=== PATIENT | female | born 1975 | race Two or more races ===

== ENCOUNTER → 2017-10-07 | Emergency (ER) | payer OTHER ==
[~2017-10-07] VITALS: Ht 172.7 cm; Wt 113.4 kg
[~2017-10-07] MED LIST: ACCUNEB0.63 MG/3 IH; CEFADROXIL500 MG PO; DOXYCYCLINE MO100 MG PO; GILTUSS LIQUID237 M1 PO; PRENATAL; PROVENTIL3 ML/2.5 M IH; PULMICORT1 MG/2 ML IH; SINGULAIR10 MG; ULTRAM50 MG PO
== END | disposition home or self-care (01) ==
LOC: ER 21:45
DX: S90.01XA Contusion of right ankle, initial encounter (principal); S30.0XXA Contusion of lower back and pelvis, initial encounter; W18.39XA Other fall on same level, initial encounter; Y93.89 Activity, other specified; Y92.091 Bathroom in other non-institutional residence as the place of occurrence of the external cause; Y99.8 Other external cause status

== ENCOUNTER 2018-01-05 16:37 | Emergency (ER) | payer OTHER ==
[~2018-01-05] VITALS: Ht 172.7 cm; Wt 108.0 kg
[2018-01-05] MEDS ORDERED: AMOX1TAB5 PO (16:50)
[2018-01-05] MEDS ORDERED: PROVENTIL HFA6.7 GM IH (16:50)
== END 2018-01-05 22:46 | disposition home or self-care (01) ==
LOC: ER 16:37
DX: J45.901 Unspecified asthma with (acute) exacerbation (principal)

== ENCOUNTER 2020-08-25 17:26 | Emergency (ER) | payer OTHER ==
[~2020-08-25] VITALS: Ht 172.7 cm; Wt 115.7 kg
[~2020-08-25 17:26] MED LIST changes: +AMOX1TAB5 PO; +PROVENTIL HFA6.7 GM IH
[2020-08-25] MEDS ORDERED: FORTAMET500 MG (17:44)
[2020-08-25] MEDS ORDERED: LEVOTHYROXINE25 MCG (17:45)
== END 2020-08-25 20:41 | disposition home or self-care (01) ==
LOC: ER 17:26
DX: J45.909 Unspecified asthma, uncomplicated (principal)

== ENCOUNTER 2022-02-01 22:53 | Emergency (ER) | payer OTHER ==
[~2022-02-01] VITALS: Ht 172.7 cm; Wt 115.2 kg
[~2022-02-01 22:53] MED LIST changes: +FORTAMET500 MG; +LEVOTHYROXINE25 MCG
[2022-02-01] MEDS ORDERED: UCERIS9 MG (23:22)
[2022-02-02] MEDS ORDERED: PAXLOVID 300-11 EACH PO (04:19)
[2022-02-02] MEDS ORDERED: ZYNCOF 20-400120 ML PO (04:21)
[2022-02-02] MEDS ORDERED: BUDESONIDE0.5 MG/2 M IH (04:21)
[2022-02-02] MEDS ORDERED: ALBUTEROL2.5 MG/3 M IH (04:21)
[2022-02-02] MEDS ORDERED: SINGULAIR10 MG PO (04:23)
== END 2022-02-02 04:46 ==
LOC: ER 22:53
DX: J45.909 Unspecified asthma, uncomplicated (principal); R06.02 Shortness of breath; Z91.040 Latex allergy status; Z88.6 Allergy status to analgesic agent; Z91.018 Allergy to other foods; Z20.822 Contact with and (suspected) exposure to COVID-19; E11.9 Type 2 diabetes mellitus without complications

== ENCOUNTER 2022-03-09 13:39 | Emergency (ER) | payer OTHER ==
[~2022-03-09] VITALS: Ht 172.7 cm; Wt 115.2 kg
[~2022-03-09 13:39] MED LIST changes: +ALBUTEROL2.5 MG/3 M IH; +BUDESONIDE0.5 MG/2 M IH; +PAXLOVID 300-11 EACH PO; +SINGULAIR10 MG PO; +UCERIS9 MG; +ZYNCOF 20-400120 ML PO
== END 2022-03-09 19:38 | disposition home or self-care (01) ==
LOC: ER 13:39
DX: R05.9 Cough, unspecified (principal); Z88.6 Allergy status to analgesic agent; Z91.040 Latex allergy status; Z91.018 Allergy to other foods; Z20.822 Contact with and (suspected) exposure to COVID-19

== ENCOUNTER 2022-10-17 17:20 | Emergency (ER) | payer OTHER ==
[~2022-10-17] VITALS: Ht 175.3 cm; Wt 115.2 kg
== END 2022-10-17 19:25 | disposition home or self-care (01) ==
LOC: ER 17:20
DX: G56.01 Carpal tunnel syndrome, right upper limb (principal); Z88.6 Allergy status to analgesic agent; Z91.040 Latex allergy status; Z91.018 Allergy to other foods; E11.9 Type 2 diabetes mellitus without complications; Z79.84 Long term (current) use of oral hypoglycemic drugs

== ENCOUNTER 2022-12-11 17:10 | Emergency (ER) | payer OTHER ==
[~2022-12-11] VITALS: Ht 172.7 cm; Wt 95.3 kg
[2022-12-11] MEDS ORDERED: METFORMIN HCL500 M3 (17:20)
[2022-12-11 18:58] LABS: HEMATOCRIT 38.1 % (36.0-45.00); HEMOGLOBIN 12.3 g/dL (12.0-15.00); MEAN CELL VOLUME 76.6 fL (80.00-100.00); MEAN CORPUSCULAR HEMOGLOBIN 24.8 pg (27.00-32.0); MEAN CORPUSCULAR HGB CONC 32.3 g/dl (32.0-36.0); PLATELET COUNT 392 K/uL (150-450); RED BLOOD COUNT 4.97 M/uL (4.00-6.00); RED CELL DISTRIBUTION WIDTH 16.5 % (11.5-14.5)
[2022-12-11 19:15] LABS: PH,URINE 7.5 (5.0-8.0); URINE APPEARANCE Clear; URINE BILIRRUBIN Negative (NEGATIVE); URINE BLOOD Negative; URINE COLOR Yellow; URINE GLUCOSE Negative (NEGATIVE); URINE LEUKOCYTE Negative; URINE NITRATE Negative; URINE PROTEIN Negative (NEGATIVE); URINE UROBILINOGEN 0.2 E.U./dl
[2022-12-11 19:16] LABS: URINE BACTERIA 564.1 uL (0.0-1933); URINE EPITHELIAL CELLS 17.6 uL (0.0-38.8); URINE RBC 2.8 uL (0.0-20.8); URINE WBC 7.1 uL (0.0-23.2)
[2022-12-11] MEDS ORDERED: DIABETIC TUSSI118 M3 PO (20:24)
[2022-12-11] MEDS ORDERED: XOPENEX CO1.25 MG/0. IH (20:24)
[2022-12-11] MEDS ORDERED: ZITHROMAX500 MG PO (20:24)
[2022-12-11] MEDS ORDERED: PAXLOVID 300-11 EACH PO (20:24)
== END 2022-12-11 20:53 | disposition home or self-care (01) ==
LOC: ER 17:10
PROVIDERS: Nurse Practitioner Family
DX: U07.1 COVID-19 (principal); R51.9 Headache, unspecified; Z88.6 Allergy status to analgesic agent; Z91.040 Latex allergy status; Z91.018 Allergy to other foods; E11.9 Type 2 diabetes mellitus without complications; Z79.84 Long term (current) use of oral hypoglycemic drugs; I10 Essential (primary) hypertension; J45.909 Unspecified asthma, uncomplicated; E03.9 Hypothyroidism, unspecified; M19.90 Unspecified osteoarthritis, unspecified site; I87.2 Venous insufficiency (chronic) (peripheral); M79.7 Fibromyalgia

== ENCOUNTER 2023-01-16 09:53 | Emergency (ER) | payer OTHER ==
[~2023-01-16] VITALS: Ht 172.7 cm; Wt 117.9 kg
[~2023-01-16 09:53] MED LIST changes: +DIABETIC TUSSI118 M3 PO; +METFORMIN HCL500 M3; +XOPENEX CO1.25 MG/0. IH; +ZITHROMAX500 MG PO
== END 2023-01-16 17:45 | disposition home or self-care (01) ==
LOC: ER 09:53
DX: M54.2 Cervicalgia (principal); Z88.6 Allergy status to analgesic agent; Z91.040 Latex allergy status; V43.52XA Car driver injured in collision with other type car in traffic accident, initial encounter; Y93.89 Activity, other specified; Y92.413 State road as the place of occurrence of the external cause; M54.50 Low back pain, unspecified; M54.6 Pain in thoracic spine

== ENCOUNTER → 2023-03-01 | Emergency (ER) | payer OTHER | END | disposition left against medical advice (07) | LOC: ER 10:13 | DX: Z53.21 Procedure and treatment not carried out due to patient leaving prior to being seen by health care provider (principal) ==

== ENCOUNTER 2023-04-01 09:47 | Emergency (ER) | payer OTHER ==
[~2023-04-01] VITALS: Ht 172.7 cm; Wt 117.0 kg
[2023-04-01] MEDS ORDERED: LOSARTAN POTASS25 MG PO (10:00)
[2023-04-01] MEDS ORDERED: BUDESONIDE0.5 MG/21 IH (10:01)
[2023-04-01] MEDS ORDERED: ALBUTEROL2.5 MG/3 M IH (10:01)
[2023-04-01] MEDS ORDERED: ROSUVASTATIN CAL5 MG PO (10:01)
== END 2023-04-01 12:43 | disposition home or self-care (01) ==
LOC: ER 09:47
DX: J06.9 Acute upper respiratory infection, unspecified (principal); E11.9 Type 2 diabetes mellitus without complications; Z79.84 Long term (current) use of oral hypoglycemic drugs; Z88.6 Allergy status to analgesic agent; Z91.040 Latex allergy status; Z88.8 Allergy status to other drugs, medicaments and biological substances; Z91.018 Allergy to other foods

== ENCOUNTER 2023-08-04 13:18 | Emergency (ER) | payer OTHER ==
[~2023-08-04] VITALS: Ht 172.7 cm; Wt 117.9 kg
[~2023-08-04 13:18] MED LIST changes: +BUDESONIDE0.5 MG/21 IH; +LOSARTAN POTASS25 MG PO; +ROSUVASTATIN CAL5 MG PO
[2023-08-04] MEDS ORDERED: 0.9 % SODIUM CHLORIDE 500 ML IV ONE (17:30)
[2023-08-04] MEDS ORDERED: ACETAMINOPHEN 500 MG GEL..CAP PO ONE ×2 (17:30→17:34)
[2023-08-04 18:05] LABS: HEMATOCRIT 37.1 % (36.0-45.00); HEMOGLOBIN 12.2 g/dL (12.0-15.00); MEAN CELL VOLUME 77.2 fL (80.00-100.00); MEAN CORPUSCULAR HEMOGLOBIN 25.4 pg (27.00-32.0); MEAN CORPUSCULAR HGB CONC 32.9 g/dl (32.0-36.0); PLATELET COUNT 385 K/uL (150-450); RED BLOOD COUNT 4.81 M/uL (4.00-6.00); RED CELL DISTRIBUTION WIDTH 16.2 % (11.5-14.5)
[2023-08-04 19:17] LABS: ALBUMIN 3.4 gm/dL (3.4-5.0); BILIRUBIN TOTAL 0.37 mg/dL (0.3-1.2); CALCIUM 9.6 mg/dL (8.5-10.1); CREATININE SERUM 0.72 mg/dL (0.55-1.02); GFR 86.82; GLOBULINA 3.8 G/DL (2.4-3.5); POTASSIUM 4.04 mEq/L (3.5-5.1); TOTAL PROTEIN 7.2 gm/dL (6.4-8.2)
[2023-08-04 19:23] LABS: ALBUMIN 3.4 gm/dL (3.4-5.0); BILIRUBIN TOTAL 0.37 mg/dL (0.3-1.2); CALCIUM 9.2 mg/dL (8.5-10.1); CREATININE SERUM 0.8 mg/dL (0.55-1.02); GFR 76.88; GLOBULINA 4.1 G/DL (2.4-3.5); POTASSIUM 3.8 mEq/L (3.5-5.1); TOTAL PROTEIN 7.5 gm/dL (6.4-8.2)
[2023-08-04 20:49] LABS: URINE APPEARANCE Clear; URINE BILIRRUBIN Negative (NEGATIVE); URINE BLOOD Negative; URINE COLOR Yellow; URINE GLUCOSE Negative (NEGATIVE); URINE LEUKOCYTE Trace; URINE NITRATE Negative; URINE PROTEIN Negative (NEGATIVE); URINE UROBILINOGEN 0.2 E.U./dl
[2023-08-04 20:52] LABS: URINE BACTERIA 633.7 uL (0.0-1933); URINE EPITHELIAL CELLS 20.2 uL (0.0-38.8); URINE RBC 7.7 uL (0.0-20.8)
== END 2023-08-05 02:14 | disposition home or self-care (01) ==
LOC: ER 13:19
PROVIDERS: Emergency Medicine; Nurse Practitioner Family
DX: B34.9 Viral infection, unspecified (principal); R50.9 Fever, unspecified; R10.9 Unspecified abdominal pain; Z20.822 Contact with and (suspected) exposure to COVID-19; I10 Essential (primary) hypertension; E03.8 Other specified hypothyroidism; E11.9 Type 2 diabetes mellitus without complications; Z79.84 Long term (current) use of oral hypoglycemic drugs; Z88.1 Allergy status to other antibiotic agents; Z88.6 Allergy status to analgesic agent; Z91.018 Allergy to other foods; Z91.041 Radiographic dye allergy status

== ENCOUNTER → 2023-12-04 | Emergency (ER) | payer OTHER ==
[~2023-12-04] VITALS: Ht 172.7 cm; Wt 115.7 kg
[~2023-12-04] MED LIST changes: +OZEMPIC0.25 MG/02 SQ
[2023-12-04 10:57] LABS: HEMATOCRIT 37.5 % (36.0-45.00); HEMOGLOBIN 12.2 g/dL (12.0-15.00); MEAN CELL VOLUME 76.5 fL (80.00-100.00); MEAN CORPUSCULAR HGB CONC 32.7 g/dl (32.0-36.0); PLATELET COUNT 395 K/uL (150-450); RED CELL DISTRIBUTION WIDTH 16.7 % (11.5-14.5)
[2023-12-04 11:18] LABS: URINE APPEARANCE Clear; URINE BILIRRUBIN Negative (NEGATIVE); URINE BLOOD Negative; URINE COLOR Yellow; URINE GLUCOSE Negative (NEGATIVE); URINE KETONE Negative (NEGATIVE); URINE LEUKOCYTE Trace; URINE NITRATE Negative; URINE PROTEIN Negative (NEGATIVE); URINE UROBILINOGEN 0.2 E.U./dl
[2023-12-04 11:21] LABS: URINE BACTERIA 232.9 uL (0.0-1933); URINE EPITHELIAL CELLS 3.8 uL (0.0-38.8); URINE RBC 5.1 uL (0.0-20.8); URINE WBC 7.5 uL (0.0-23.2)
[2023-12-04 11:22] LABS: CALCIUM 9.4 mg/dL (8.5-10.1); CREATININE SERUM 0.76 mg/dL (0.55-1.02); GFR 81.57; POTASSIUM 4.37 mEq/L (3.5-5.1)
== END | disposition home or self-care (01) ==
LOC: ER 08:49
PROVIDERS: General Practice
DX: J06.9 Acute upper respiratory infection, unspecified (principal); Z20.822 Contact with and (suspected) exposure to COVID-19; Z88.6 Allergy status to analgesic agent; Z91.040 Latex allergy status; Z88.8 Allergy status to other drugs, medicaments and biological substances; Z91.018 Allergy to other foods

== ENCOUNTER 2024-02-02 14:22 | Emergency (ER) | payer OTHER ==
[~2024-02-02] VITALS: Ht 172.7 cm; Wt 111.1 kg
[2024-02-02] MEDS ORDERED: IPRATROPIUM/ALBUTEROL SULFATE 3 ML AMPUL.NEB IH SCH ×2 (16:30→21:45)
[2024-02-02] MEDS ORDERED: 0.9 % SODIUM CHLORIDE 500 ML IV ONE (16:45)
[2024-02-02] MEDS ORDERED: MAGNESIUM SULFATE IN WATER 50 ML IV NR (16:45)
[2024-02-02 18:46] LABS: HEMATOCRIT 41.8 % (36.0-45.00); HEMOGLOBIN 13.5 g/dL (12.0-15.00); MEAN CELL VOLUME 77.1 fL (80.00-100.00); MEAN CORPUSCULAR HGB CONC 32.4 g/dl (32.0-36.0); PLATELET COUNT 370 K/uL (150-450); RED BLOOD COUNT 5.42 M/uL (4.00-6.00); RED CELL DISTRIBUTION WIDTH 16.8 % (11.5-14.5)
[2024-02-02] MEDS ORDERED: IPRATROPIUM/ALBUTEROL SULFATE 3 ML AMPUL.NEB IH ONE (19:14)
[2024-02-02 19:35] LABS: ALBUMIN 3.3 gm/dL (3.4-5.0); BILIRUBIN TOTAL 0.28 mg/dL (0.3-1.2); CALCIUM 9.4 mg/dL (8.5-10.1); CREATININE SERUM 0.73 mg/dL (0.55-1.02); GFR 85.45; GLOBULINA 3.7 G/DL (2.4-3.5); POTASSIUM 4.43 mEq/L (3.5-5.1)
[2024-02-02 20:24] LABS: ABG PH 7.445 (7.35-7.45); ABG PO2 81.8 mmHg (80-100); ABG pCO2 37.7 mmHg (35-45); BASE EXCESS 1.4 mmol/l; SaO2 96.5 %
[2024-02-02 20:25] LABS: BICARBONATE 25.3 mmol/l (23-25); Tco2 26.5 mmol/l; allen test SATISFACTORY; o2 21 %; puncture site RADIAL RIGHT
[2024-02-02] MEDS ORDERED: METHYLPREDNISOLONE SOD SUCC 125 MG VIAL IV ONE (21:45)
[2024-02-02] MEDS ORDERED: GUAIFENESIN/DEXTROMETHORPHAN 10ML BLIST.PACK PO ONE ×2 (21:45→22:02)
[2024-02-02] MEDS ORDERED: MONTELUKAST SODIUM 10 MG TABLET PO ONE (21:45)
[2024-02-02] MEDS ORDERED: FAMOTIDINE/PF 20 MG/2 ML VIAL IV ONE (21:45)
[2024-02-02] MEDS ORDERED: METHYLPREDNISOLONE SOD SUCC 125 MG VIAL ONE (22:01)
[2024-02-02] MEDS ORDERED: FAMOTIDINE/PF 20 MG/2 ML VIAL ONE (22:02)
[2024-02-02] MEDS ORDERED: AMOX-CLAV 875-1 EAC1 PO (23:23)
[2024-02-02] MEDS ORDERED: SINGULAIR10 MG PO (23:23)
[2024-02-02] MEDS ORDERED: ALLERGY RELIEF10 M4 PO (23:23)
[2024-02-02] MEDS ORDERED: IPRATROPIU0.2 MG/1 M IH (23:23)
[2024-02-02] MEDS ORDERED: MEDROLPACK PO (23:23)
[2024-02-02] MEDS ORDERED: BUDESONIDE0.5 MG/2 M IH (23:23)
[2024-02-02] MEDS ORDERED: ALBUTEROL1.25 MG/3 IH (23:23)
[2024-02-02] MEDS ORDERED: DYMISTA NASAL S23 GM NASAL (23:23)
== END 2024-02-03 00:48 ==
LOC: ER 14:24
PROVIDERS: General Practice
DX: J45.901 Unspecified asthma with (acute) exacerbation (principal); E11.9 Type 2 diabetes mellitus without complications; Z79.84 Long term (current) use of oral hypoglycemic drugs; I10 Essential (primary) hypertension; Z20.822 Contact with and (suspected) exposure to COVID-19; Z88.6 Allergy status to analgesic agent; Z91.040 Latex allergy status; Z88.8 Allergy status to other drugs, medicaments and biological substances; Z91.018 Allergy to other foods

== ENCOUNTER 2024-04-24 09:58 | Emergency (ER) | payer OTHER ==
[~2024-04-24] VITALS: Ht 172.7 cm; Wt 115.7 kg
[~2024-04-24 09:58] MED LIST changes: +ALBUTEROL1.25 MG/3 IH; +ALLERGY RELIEF10 M4 PO; +AMOX-CLAV 875-1 EAC1 PO; +DYMISTA NASAL S23 GM NASAL; +IPRATROPIU0.2 MG/1 M IH; +MEDROLPACK PO
[2024-04-24] MEDS ORDERED: DEXAMETHASONE SODIUM PHOSPHATE 4 MG/ML VIAL IM STA (11:33)
[2024-04-24] MEDS ORDERED: DEXAMETHASONE SODIUM PHOSPHATE 4 MG/ML VIAL ONE (11:41)
[2024-04-24 12:08] LABS: HEMATOCRIT 35.6 % (36.0-45.00); HEMOGLOBIN 11.5 g/dL (12.0-15.00); MEAN CELL VOLUME 77.5 fL (80.00-100.00); MEAN CORPUSCULAR HGB CONC 32.2 g/dl (32.0-36.0); PLATELET COUNT 432 K/uL (150-450); RED BLOOD COUNT 4.59 M/uL (4.00-6.00)
[2024-04-24 13:02] LABS: CALCIUM 9.7 mg/dL (8.5-10.1); CREATININE SERUM 0.73 mg/dL (0.55-1.02); GFR 85.09; POTASSIUM 4.42 mEq/L (3.5-5.1)
== END 2024-04-24 13:57 | disposition home or self-care (01) ==
LOC: ER 10:01
PROVIDERS: General Practice
DX: R53.81 Other malaise (principal); I10 Essential (primary) hypertension; E03.8 Other specified hypothyroidism; E11.9 Type 2 diabetes mellitus without complications; Z79.84 Long term (current) use of oral hypoglycemic drugs; Z20.822 Contact with and (suspected) exposure to COVID-19; Z88.6 Allergy status to analgesic agent; Z91.018 Allergy to other foods; Z91.040 Latex allergy status

== ENCOUNTER 2024-07-08 17:02 | Emergency (ER) | payer OTHER ==
[~2024-07-08] VITALS: Ht 172.7 cm; Wt 115.2 kg
[2024-07-08] MEDS ORDERED: METHYLPREDNISOLONE SOD SUCC 125 MG VIAL ONE (18:52)
[2024-07-08] MEDS ORDERED: CEFTRIAXONE SODIUM 1,000 MG VIAL ONE (18:52)
[2024-07-08] MEDS ORDERED: LEVALBUTEROL HCL 1.25 MG/3 ML SOLUTION IH SCH (19:00)
[2024-07-08] MEDS ORDERED: CEFTRIAXONE SODIUM 1,000 MG VIAL IV ONE (19:00)
[2024-07-08] MEDS ORDERED: METHYLPREDNISOLONE SOD SUCC 125 MG VIAL IV ONE (19:00)
[2024-07-08] MEDS ORDERED: IPRATROPIUM BROMIDE 0.5 MG/2.5 ML AMPUL.NEB IH SCH (19:00)
[2024-07-08] MEDS ORDERED: MAGNESIUM SULFATE IN WATER 2 GM/50 ML PIGGYBAG IV ONE (19:00)
[2024-07-08] MEDS ORDERED: MONTELUKAST SODIUM 10 MG TABLET PO ONE (19:00)
[2024-07-08 19:22] LABS: BASO % 0.3 % (0.1-1.2); EOS # 0.25 (0.04-0.54); EOS % 2.1 % (0.7-7.0); HEMATOCRIT 34.6 % (34.1-44.9); HEMOGLOBIN 10.9 g/dL (11.2-15.7); LYMPH % 23.9 % (19.3-53.1); MEAN CORPUSCULAR HEMOGLOBIN 24.1 pg (25.6-32.2); MONO # 0.85 (0.24-0.82); NEUT # 8.07 (1.56-6.13); NEUT % 66.5 % (34.0-71.1); PLATELET COUNT 445 K/uL (163-369); RED BLOOD COUNT 4.53 M/uL (3.93-5.22); RED CELL DISTRIBUTION WIDTH 15.4 % (11.6-14.4)
[2024-07-08 19:40] LABS: COVID-19 AG NEGATIVE (NEGATIVE); INFLUENZA A AG NEGATIVE (NEGATIVE); INFLUENZA B AG NEGATIVE (NEGATIVE)
[2024-07-08] MEDS ORDERED: IPRATROPIUM BROMIDE 0.5 MG/2.5 ML AMPUL.NEB IH ONE (20:06)
[2024-07-08] MEDS ORDERED: LEVALBUTEROL HCL 0.63 MG/3 ML SOLUTION IH ONE (20:06)
[2024-07-08] MEDS ORDERED: PEPCID AC20 MG PO (20:47)
[2024-07-08] MEDS ORDERED: MEDROLPACK PO (20:47)
[2024-07-08] MEDS ORDERED: AZITHROMYCIN500 MG PO (20:47)
[2024-07-08] MEDS ORDERED: XOPENEX HFA15 GM IH (20:47)
[2024-07-08] MEDS ORDERED: BENZONATATE200 M1 PO (20:47)
[2024-07-08] MEDS ORDERED: SINGULAIR10 MG PO (20:47)
[2024-07-08 21:04] LABS: ABG PH 7.407 (7.35-7.45); ABG pCO2 42.3 mmHg (35-45); BASE EXCESS 1.2 mmol/l; BICARBONATE 26.1 mmol/l (23-25); SaO2 96.4 %; Tco2 27.4 mmol/l
[2024-07-08 21:05] LABS: allen test SATISFACTORY; mode ROOM AIR; o2 21 %; puncture site RADIAL RIGHT
[2024-07-08 21:06] LABS: ABG PO2 84.5 mmHg (80-100)
== END 2024-07-08 20:57 | disposition home or self-care (01) ==
LOC: ER 17:02
PROVIDERS: General Practice
DX: J45.901 Unspecified asthma with (acute) exacerbation (principal); I10 Essential (primary) hypertension; M79.7 Fibromyalgia; Z91.040 Latex allergy status; Z88.6 Allergy status to analgesic agent; Z20.822 Contact with and (suspected) exposure to COVID-19; E11.9 Type 2 diabetes mellitus without complications; Z79.84 Long term (current) use of oral hypoglycemic drugs; Z91.018 Allergy to other foods

== ENCOUNTER 2024-08-21 21:06 | Emergency (ER) | payer OTHER ==
[~2024-08-21] VITALS: Ht 172.7 cm; Wt 111.1 kg
[~2024-08-21 21:06] MED LIST changes: +AZITHROMYCIN500 MG PO; +BENZONATATE200 M1 PO; +PEPCID AC20 MG PO; +XOPENEX HFA15 GM IH
[2024-08-21 23:18] LABS: BASO % 0.4 % (0.1-1.2); EOS # 0.11 (0.04-0.54); EOS % 0.8 % (0.7-7.0); LYMPH # 3.16 (1.18-3.74); LYMPH % 23.6 % (19.3-53.1); MEAN PLATELET VOLUME 9.90 fl (9.4-12.4); MONO # 1.05 (0.24-0.82); MONO % 7.8 % (4.7-12.5); NEUT # 8.99 (1.56-6.13); NEUT % 67.2 % (34.0-71.1); RED CELL DISTRIBUTION WIDTH 16.7 % (11.6-14.4)
[2024-08-21 23:24] LABS: URINE APPEARANCE Clear; URINE BILIRRUBIN Negative (NEGATIVE); URINE BLOOD Negative; URINE COLOR Yellow; URINE GLUCOSE Negative (NEGATIVE); URINE KETONE Trace (NEGATIVE); URINE LEUKOCYTE Small; URINE NITRATE Negative; URINE PROTEIN Trace (NEGATIVE); URINE UROBILINOGEN 1.0 E.U./dl
[2024-08-21 23:28] LABS: URINE BACTERIA 413.9 uL (0.0-1933); URINE EPITHELIAL CELLS 19.0 uL (0.0-38.8); URINE RBC 9.8 uL (0.0-20.8); URINE WBC 28.3 uL (0.0-23.2)
[2024-08-21 23:48] LABS: URINE CAST 0.29 uL (0.0-1.40)
[2024-08-21 23:49] LABS: URINE CRYSTALS MODERATE /HPF
[2024-08-21 23:54] LABS: ALT/SGPT 22 U/L (12-78); AST/SGOT 15 U/L (15-37); BILIRUBIN TOTAL 0.24 mg/dL (0.3-1.2); BILIRUBIN,CONJUGATED < 0.10 mg/dL (0.0-0.2); BUN CREA RATIO 19 (7.0-25.0); CREATININE SERUM 0.74 mg/dL (0.55-1.02); GFR 83.76; GLOBULINA 3.5 G/DL (2.4-3.5); GLUCOSE FASTING 92 mg/dL (65-100); OSMOLALITY SERUM 285 MOSM/KG (275-295)
== END 2024-08-22 01:21 | disposition home or self-care (01) ==
LOC: ER 21:38
PROVIDERS: Emergency Medicine
DX: R10.9 Unspecified abdominal pain (principal); K29.70 Gastritis, unspecified, without bleeding; Z88.6 Allergy status to analgesic agent; Z91.040 Latex allergy status; J45.909 Unspecified asthma, uncomplicated; E03.8 Other specified hypothyroidism; N39.0 Urinary tract infection, site not specified; E11.9 Type 2 diabetes mellitus without complications; Z79.84 Long term (current) use of oral hypoglycemic drugs

== ENCOUNTER 2024-08-29 15:20 | Emergency (ER) | payer OTHER ==
[~2024-08-29] VITALS: Ht 172.7 cm; Wt 115.2 kg
[2024-08-29] MEDS ORDERED: OZEMPIC1 MG/0.71 SQ (15:37)
[2024-08-29] MEDS ORDERED: CEFTRIAXONE SODIUM 2,000 MG VIAL IV ONE (16:45)
[2024-08-29] MEDS ORDERED: METOCLOPRAMIDE HCL 5 MG/ML VIAL IV ONE (16:45)
[2024-08-29] MEDS ORDERED: 0.9 % SODIUM CHLORIDE 500 ML IV ONE (16:45)
[2024-08-29] MEDS ORDERED: FAMOTIDINE/PF 20 MG/2 ML VIAL IV ONE (16:45)
[2024-08-29] MEDS ORDERED: METOCLOPRAMIDE HCL 5 MG/ML VIAL ONE (16:59)
[2024-08-29] MEDS ORDERED: CEFTRIAXONE SODIUM 2,000 MG VIAL ONE (16:59)
[2024-08-29] MEDS ORDERED: FAMOTIDINE/PF 20 MG/2 ML VIAL ONE (16:59)
[2024-08-29 17:31] LABS: BASO % 0.2 % (0.1-1.2); EOS # 0.21 (0.04-0.54); EOS % 1.7 % (0.7-7.0); LYMPH # 2.59 (1.18-3.74); LYMPH % 20.9 % (19.3-53.1); MEAN PLATELET VOLUME 9.30 fl (9.4-12.4); MONO # 0.98 (0.24-0.82); MONO % 7.9 % (4.7-12.5); NEUT # 8.57 (1.56-6.13); NEUT % 69.1 % (34.0-71.1); RED CELL DISTRIBUTION WIDTH 17.0 % (11.6-14.4)
[2024-08-29 18:03] LABS: ALT/SGPT 20.0 U/L (12-78); AST/SGOT 11.0 U/L (15-37); BILIRUBIN TOTAL 0.22 mg/dL (0.3-1.2); BUN CREA RATIO 13.0 (7.0-25.0); CREATININE SERUM 0.88 mg/dL (0.55-1.02); GFR 68.58; GLOBULINA 3.3 G/DL (2.4-3.5); GLUCOSE FASTING 91.0 mg/dL (65-100); OSMOLALITY SERUM 282.0 MOSM/KG (275-295)
[2024-08-29 19:42] LABS: URINE APPEARANCE Cloudy; URINE BILIRRUBIN Negative (NEGATIVE); URINE BLOOD Negative; URINE COLOR Yellow; URINE GLUCOSE Negative (NEGATIVE); URINE KETONE Trace (NEGATIVE); URINE LEUKOCYTE Negative; URINE NITRATE Negative; URINE PROTEIN Negative (NEGATIVE); URINE UROBILINOGEN 0.2 E.U./dl
[2024-08-29 19:47] LABS: URINE BACTERIA 139.1 uL (0.0-1933); URINE EPITHELIAL CELLS 5.5 uL (0.0-38.8); URINE RBC 11.1 uL (0.0-20.8); URINE WBC 2.6 uL (0.0-23.2)
[2024-08-29 19:53] LABS: URINE CAST 0.00 uL (0.0-1.40)
== END 2024-08-29 20:20 | disposition home or self-care (01) ==
LOC: ER 15:30
PROVIDERS: General Practice
DX: N83.209 Unspecified ovarian cyst, unspecified side (principal); R10.9 Unspecified abdominal pain; I10 Essential (primary) hypertension; E11.9 Type 2 diabetes mellitus without complications; Z79.84 Long term (current) use of oral hypoglycemic drugs; Z88.6 Allergy status to analgesic agent; Z16.23 Resistance to quinolones and fluoroquinolones; Z91.018 Allergy to other foods; Z91.040 Latex allergy status

== ENCOUNTER 2025-01-26 17:27 | Emergency (ER) | payer OTHER ==
[~2025-01-26] VITALS: Ht 172.7 cm; Wt 115.7 kg
[~2025-01-26 17:27] MED LIST changes: +ACETAMINOPHEN500 M1 PO; +GILTUSS COUGH-118 M1 PO; +OZEMPIC1 MG/0.71 SQ; +SYNTHROID75 MCG PO
[2025-01-26 19:35] VITALS: BP 134/74; O2SAT 97
[2025-01-26] MEDS ORDERED: LEVALBUTEROL HCL 1.25 MG/3 ML SOLUTION IH SCH (20:00)
[2025-01-26] MEDS ORDERED: BUDESONIDE 0.5 MG/2 ML AMPUL.NEB IH ONE ×2 (20:00→21:32)
[2025-01-26] MEDS ORDERED: IPRATROPIUM BROMIDE 0.5 MG/2.5 ML AMPUL.NEB IH SCH (20:00)
[2025-01-26] MEDS ORDERED: METHYLPREDNISOLONE SOD SUCC 125 MG VIAL IV ONE (20:00)
[2025-01-26] MEDS ORDERED: MAGNESIUM SULFATE IN WATER 50 ML IV ONE (20:00)
[2025-01-26] MEDS ORDERED: METHYLPREDNISOLONE SOD SUCC 125 MG VIAL ONE (20:49)
[2025-01-26] MEDS ORDERED: MAGNESIUM SULFATE 50% 1,000 MG/2 ML VIAL ONE (20:49)
[2025-01-26 21:14] LABS: BASO % 0.3 % (0.1-1.2); EOS # 0.16 (0.04-0.54); EOS % 1.0 % (0.7-7.0); LYMPH # 2.53 (1.18-3.74); LYMPH % 16.3 % (19.3-53.1); MEAN PLATELET VOLUME 9.20 fl (9.4-12.4); MONO # 1.21 (0.24-0.82); MONO % 7.8 % (4.7-12.5); NEUT # 11.53 (1.56-6.13); NEUT % 74.3 % (34.0-71.1); RED CELL DISTRIBUTION WIDTH 17.8 % (11.6-14.4)
[2025-01-26 21:28] LABS: ALT/SGPT 25.0 U/L (12-78); AST/SGOT 13.0 U/L (15-37); BILIRUBIN TOTAL 0.28 mg/dL (0.3-1.2); BUN CREA RATIO 12.0 (7.0-25.0); CREATININE SERUM 0.67 mg/dL (0.55-1.02); GFR 93.94; GLOBULINA 4.0 G/DL (2.4-3.5); GLUCOSE FASTING 108.0 mg/dL (65-100); OSMOLALITY SERUM 280.0 MOSM/KG (275-295)
[2025-01-26] MEDS ORDERED: LEVALBUTEROL HCL 1.25 MG/3 ML SOLUTION IH ONE (21:32)
[2025-01-26] MEDS ORDERED: IPRATROPIUM BROMIDE 0.5 MG/2.5 ML AMPUL.NEB IH ONE (21:33)
[2025-01-26 22:06] LABS: COVID-19 AG NEGATIVE (NEGATIVE)
[2025-01-26] MEDS ORDERED: AZITHROMYCIN 500 MG VIAL IV ONE (23:45)
[2025-01-27] MEDS ORDERED: BUDESONIDE0.5 MG/2 M IH (01:23)
[2025-01-27] MEDS ORDERED: BENZONATATE200 M1 PO (01:23)
[2025-01-27] MEDS ORDERED: IPRATROPIU0.2 MG/1 M IH (01:23)
[2025-01-27] MEDS ORDERED: ALBUTEROL2.5 MG/3 M IH (01:23)
[2025-01-27] MEDS ORDERED: ZITHROMAX TRI-500 MG PO (01:23)
== END 2025-01-27 03:05 | disposition home or self-care (01) ==
LOC: ER 17:27
PROVIDERS: Preventive Medicine Public Health & General Preventive Medicine
DX: J45.901 Unspecified asthma with (acute) exacerbation (principal); R05.8 Other specified cough; Z91.018 Allergy to other foods; Z88.6 Allergy status to analgesic agent; Z91.040 Latex allergy status; Z88.1 Allergy status to other antibiotic agents; I10 Essential (primary) hypertension; E03.8 Other specified hypothyroidism; R50.9 Fever, unspecified; R51.9 Headache, unspecified; R06.02 Shortness of breath; E11.9 Type 2 diabetes mellitus without complications; Z79.84 Long term (current) use of oral hypoglycemic drugs; Z20.822 Contact with and (suspected) exposure to COVID-19